=== PATIENT | female | born 1965 | race Caucasian/White ===

== ENCOUNTER 2017-11-22 08:48 | Outpatient (CLI) | payer BC | END 2017-11-22 23:59 | disposition home or self-care (01) | LOC: VAS 08:48 | PROVIDERS: ATTEND Surgery | DX: I86.8 Varicose veins of other specified sites (principal); M25.462 Effusion, left knee; I87.2 Venous insufficiency (chronic) (peripheral) | CPT/HCPCS: 93970 ==

== ENCOUNTER 2019-01-16 09:43 | Outpatient (CLI) | payer BC | END 2019-01-16 23:59 | disposition home or self-care (01) | LOC: VAS 09:43 | PROVIDERS: ATTEND Surgery | DX: I87.2 Venous insufficiency (chronic) (peripheral) (principal) | CPT/HCPCS: 93971 ==